=== PATIENT | male | born 1965 | race Caucasian/White ===

== ENCOUNTER 2024-08-04 03:45 | Day surgery (SDC) | payer OTHER, SELFPAY ==
[2024-07-15 14:23] VITALS: BMI 29.7
--- NOTE | 2024-08-03 16:18 | WPDANESEPP ---
Anes - Eval Pre Procedure Procedure: Operation Date: 08/04/24 10:00 Proposed Procedures p Screening Colonoscopy - Karri AprilEstella Alva DO Date/Time: 08/03/24 16:18 Pre Op Diagnosis: Screening for malignant neoplasm of colon Patient Data Age: 58 Gender: M Height: 1.7 m Weight: 86.3 kg Allergies Allergy/AdvReac Type Severity Reaction Status Date / Time No Known Allergies Allergy Verified 07/15/24 14:24 Home Medications Medication Instructions Recorded Confirmed Type cetirizine 10 mg capsule (Zyrtec) 10 mg PO DAILY #90 caps 05/30/24 07/15/24 Rx fluoxetine 20 mg capsule 20 mg PO DAILY 05/30/24 07/15/24 History fluticasone propionate 50 2 spray intranasal DAILY #16 grams 05/30/24 07/15/24 Rx mcg/actuation nasal spray,suspension (Flonase Allergy Relief) olanzapine 10 mg tablet 15 mg PO DAILY 05/30/24 07/15/24 History omeprazole 20 mg capsule,delayed 20 mg PO DAILY #90 caps 05/30/24 07/15/24 Rx release Patient hx anesthesia problems: none Family hx anesthesia problems: none Results Review: All pre-operative results and documents have been reviewed as part of the pre-operative evaluation. [facility] Past Medical History Medical History (Updated 08/03/24 @ 16:19 by Ginna De León CRNA) Anxiety Depression Headache Surgical History Surgical History H/O endoscopic sinus surgery Hx of tonsillectomy Family History Family History Mother Thyroid disorder Father Heart disease Social History Social History Smoking packs per day: 1 Smoking cigarettes per day: 20.0 Years smoked: 20 Smoking pack-years: 20.00 Smoking status: Current every day smoker Tobacco type: cigarettes Second hand tobacco smoke exposure: Yes Alcohol intake: current Drinks per week: 4 Substance use: never Substance use type: does not use Living arrangements: with family Occupation/Education: unemployed Gender identity (if verbalized by the patient): Male Sexual Orientation (if Verbalized by the Patient): Straight or Heterosexual Spiritual care concerns: No Agree to blood products: Yes Exam Day of Procedure 08/03/24 16:18
[2024-08-04 08:59] VITALS: BP 138/88; PULSE 64; RESP 16; TEMP 35.9; O2SAT 96
--- NOTE | 2024-08-04 09:15 | P.PNAN_ITS ---
Anes - Eval Final PreProcedure Day of Procedure 08/04/24 09:15 Patient weight: obese Heart: regular rate and rhythm Lungs: clear to auscultation Airway: Mallampati scale class II Neurological: alert and oriented Last oral intake: >/= 8 hours ASA classification: II Emergent: no Anesthetic plan: proceed Anesthesia type and monitoring: general GIVS and standard monitoring Results Review: All pre-operative results and documents have been reviewed as part of the pre- operative evaluation. Informed Consent: The patient's anesthetic plan and its attendant risks and benefits were discussed with the patient/family/POA. Questions were solicited and answers provided to the satisfaction of the patient/family/POA.
[2024-08-04] MEDS: LACTATED RINGERS 1,000 ML 150 ML IV CONT (09:19)
--- NOTE | 2024-08-04 10:34 | PM.IMHP ---
H&P: HPI History of Present Illness Date/Time: 08/04/24 10:34 Chief Complaint: screening for colorectal cancer Narrative: this is a 58-year-old man who presents for colonoscopy. He has never had a colonoscopy before. He denies any hematochezia or melena. He denies any first-degree relatives with history of colon cancer. Review of Systems Review of Systems: All systems reviewed & are unremarkable except as noted in HPI and below Constitutional: Constitutional: Denies chills, Denies fever(s), Denies headache(s) and Denies weight loss Eyes: Eyes: Denies change in vision ENT: Denies dizziness, Denies headache(s), Denies neck mass and Denies throat swelling Cardiovascular: Cardiovascular: Denies chest pain, Denies lightheadedness and Denies dyspnea Respiratory: Respiratory: Denies cough, Denies dyspnea and Denies wheezing Gastrointestinal: Gastrointestinal: Denies abdominal pain, Denies change in bowel habits, Denies nausea and Denies vomiting Genitourinary: Genitourinary: Denies hematuria and Denies dysuria Musculoskeletal: Musculoskeletal: Reports as per HPI Integumentary/Breasts: Skin/Breast: Reports as per HPI Neurologic: Denies dizziness and Denies headache(s) Allergic/Immunologic: Allergic/Immunologic: Denies throat swelling and Denies wheezing [facility] Past Medical History Medical History (Updated 08/03/24 @ 16:19 by Ginna De León CRNA) Anxiety Depression Headache Surgical History Surgical History H/O endoscopic sinus surgery Hx of tonsillectomy Family History Family History Mother Thyroid disorder Father Heart disease Social History Social History Smoking packs per day: 1 Smoking cigarettes per day: 20.0 Years smoked: 20 Smoking pack-years: 20.00 Smoking status: Current every day smoker Tobacco type: cigarettes Second hand tobacco smoke exposure: Yes Alcohol intake: current Drinks per week: 4 Substance use: never Substance use type: does not use Living arrangements: with family Occupation/Education: unemployed Gender identity (if verbalized by the patient): Male Sexual Orientation (if Verbalized by the Patient): Straight or Heterosexual Spiritual care concerns: No Agree to blood products: Yes Meds Home Medications and Allergies Home Medications Medication Instructions Recorded Confirmed Type cetirizine 10 mg capsule (Zyrtec) 10 mg PO DAILY #90 caps 05/30/24 08/04/24 Rx fluoxetine 20 mg capsule 20 mg PO DAILY 05/30/24 08/04/24 History fluticasone propionate 50 2 spray intranasal DAILY #16 grams 05/30/24 08/04/24 Rx mcg/actuation nasal spray,suspension (Flonase Allergy Relief) olanzapine 10 mg tablet 15 mg PO DAILY 05/30/24 08/04/24 History omeprazole 20 mg capsule,delayed 20 mg PO DAILY #90 caps 05/30/24 08/04/24 Rx release Allergies Allergy/AdvReac Type Severity Reaction Status Date / Time No Known Allergies Allergy Verified 08/04/24 08:58 Vital Signs Vital Signs - 24 hr 08/04/24 08:59 Temperature 96.7 F L Pulse Rate 64 Respiratory Rate 16 Blood Pressure 138/88 Pulse Oximetry 96 Oxygen Delivery Room Air Exam Const: General: no acute distress and alert Orientation/consciousness: patient oriented x3 HENMT: Head: normocephalic and atraumatic Ears: hearing grossly normal bilaterally Face/Nose/Sinus: Normal nares present Mouth: Yes Normal oral and palatal mucosa present Eyes: Periorbital: periorbital findings normal Sclera: sclerae normal EOM: EOMs intact bilaterally Neck: Neck: normal visual inspection, no lymphadenopathy and trachea midline Chest: Chest palpation & inspection: normal inspection of the chest Resp: Effort & Inspection: normal respiratory effort Auscultation: clear to auscultation bilaterally Cardio: Jugular venous distension: no JVD Rate: regular rate Rhythm: regular rhythm Heart sounds: S1 normal heart sound present and S2 normal heart sound present Peripheral pulses: Peripheral pulses 2+ throughout GI: Inspection: normal to inspection GI Palp: Yes Soft to palpation, No Tenderness to palpation present (GI), No Guarding due to palpation present (GI) and No Rebound tenderness present Percussion: Yes normal to percussion Auscultation: normal bowel sounds : General: Yes no CVA tenderness Back/Spine/Pelvis: Back: no CVA tenderness Neuro: General: patient oriented x3, no focal motor deficits and CN's II-XI intact bilaterally Cognition (Neuro): normal cognition Speech: normal speech Motor exam (neuro): 5/5 motor strength present throughout Extrem: General: capillary refill normal and no clubbing, cyanosis or edema Assessment and Plan Assessment and plan (1) Colon cancer screening: Code(s): Z12.11 - Encounter for screening for malignant neoplasm of colon Status: Acute Assessment and Plan: I have recommended colonoscopy. I have discussed the procedure, risks, benefits, and alternatives. Questions were answered. Patient is agreeable to proceed.
[2024-08-04 10:57] VITALS: BP 98/63; PULSE 54; RESP 18; O2SAT 98
[2024-08-04 11:07] VITALS: BP 111/73; PULSE 51; RESP 19; O2SAT 99
[2024-08-04 11:17] VITALS: BP 133/86; PULSE 59; RESP 18; O2SAT 98
== END 2024-08-04 11:25 | disposition home or self-care (01) ==
PROVIDERS: PCP Family Medicine; Visit Provider Surgery
PROC: 0DJD8ZZ Inspection of Lower Intestinal Tract, Via Natural or Artificial Opening Endoscopic (ICD-10-PCS; CPT 45378; principal; 2024-08-04 10:00)
DX: Z12.11 Encounter for screening for malignant neoplasm of colon (principal); D12.5 Benign neoplasm of sigmoid colon; F41.9 Anxiety disorder, unspecified; F32.A Depression, unspecified; F17.210 Nicotine dependence, cigarettes, uncomplicated
CPT/HCPCS: 45380; 88305; J2003; J2704; J7120